=== PATIENT | male | born 1965 | race Caucasian/White ===

== ENCOUNTER 2021-07-01 17:47 | Emergency (ER) | payer OTHER, SELFPAY ==
[2021-07-01 17:57] VITALS: BP 104/70; PULSE 104; RESP 20; TEMP 37.1; O2SAT 100; BMI 29.0
[2021-07-01] MEDS: HYDROmorphone HCl 1 MG/ML SYRINGE IVPUSH ×2 (18:36→20:34)
[2021-07-01 18:37] VITALS: BP 128/88; PULSE 94; RESP 20
[2021-07-01 18:41] VITALS: BP 110/81; PULSE 89; RESP 16; O2SAT 99
--- NOTE | 2021-07-01 18:41 | ED.GENADULT ---
HPI - General Adult General Chief complaint: General Medical Stated complaint: drain tube leakage Time Seen by Provider: 07/01/21 18:17 Source: patient and family Mode of arrival: wheelchair Limitations: no limitations History of Present Illness HPI narrative: 56 yo male with known liver cancer followed by Dr Larson at [facility] (monthly chemo) here seeking paracentesis. Patient tells me he has a pleur X tube and does daily drainages (1L-2200ml). Last drainage was yesterday. Today they realized they did not have the supplies needed to do the paracentesis so the son brought the patient here. He has a visiting nurse that is coming at 9am tomorrow with additional supplies. Patient reports pain when my abdomen is full of fluids and states this is normal for me. No vomiting, diarrhea, fevers/chills, urinary symptoms. Patient has some bruising around his periorbital area that he tells me is from a fall on June 21 and he was seen in the emergency room on that day. Related Data Allergies Allergy/AdvReac Type Severity Reaction Status Date / Time No Known Allergies [NKA] Allergy Unverified 12/23/19 17:34 Review of Systems Review of Systems: Yes all other systems are reviewed and are negative Constitutional: Constitutional: Reports no additional constitutional complaints, Denies body ache(s), Denies chills, Denies fever(s), Denies headache(s) and Denies weakness Eyes: Eyes: Reports no additional eye complaints and Denies change in vision ENT: Reports system reviewed and no additional complaints, except as documented, Denies dizziness, Denies headache(s), Denies nasal congestion, Denies nasal discharge and Denies neck pain Cardiovascular: Cardiovascular: Reports no additional cardiovascular complaints, Denies chest pain, Denies leg edema and Denies dyspnea Respiratory: Respiratory: Reports no additional respiratory complaints, Denies cough and Denies dyspnea Gastrointestinal: Gastrointestinal: Reports no additional gastrointestinal complaints, Denies abdominal pain, Denies diarrhea, Denies nausea, Denies vomiting and Reports other (+abdominal distention ) Genitourinary: Genitourinary: Denies urinary incontinence Musculoskeletal: Musculoskeletal: Reports no additional musculoskeletal complaints, Denies back pain, Denies arthralgias, Denies joint swelling, Denies neck pain, Denies numbness and Denies tingling Integumentary/Breasts: Skin/Breast: Reports system reviewed and no additional complaints, except as docu and Denies rash Neurologic: Reports system reviewed and no additional complaints, except as documented, Denies dizziness, Denies headache(s), Denies numbness, Denies tingling and Denies weakness PMFSH Past Medical History Attestation statement: The following information was validated with the patient. Source: old records reviewed and nursing notes reviewed Medical History Liver cancer Social History Social History Advance Directives: No Advance Directives Information Provided: No Physical Exam ED Vital Signs: Vital Signs - 24 hr 07/01/21 17:57 07/01/21 18:37 07/01/21 18:41 Temperature 98.8 F Pulse Rate 104 H 94 89 Respiratory Rate 20 20 16 Blood Pressure 104/70 128/88 110/81 Pulse Oximetry 100 99 07/01/21 20:33 Temperature Pulse Rate 91 Respiratory Rate 16 Blood Pressure 121/81 Pulse Oximetry 98 BMI result Body Mass Index 29.0 Const General: alert Nutritional Appearance: thin Limitations: no limitations HENMT Other: Periorbital bruising bilaterally Ears: hearing grossly normal bilaterally Face and sinus: Yes normal facial exam Neck Neck: Yes normal visual inspection Chest Chest palpation & inspection: normal inspection of the chest Resp Effort & Inspection: normal respiratory effort Auscultation: clear to auscultation bilaterally Cardio Rate: regular rate Rhythm: regular rhythm Peripheral pulses: Peripheral pulses 2+ throughout GI Other: Pleur x RUQ Palpation (GI): Firmness to palpation present (GI) Back/Spine/Pelvis Thoracic/Lumbar Spine: thoracic and lumbar spine normal to inspection Skin General skin exam: no rashes or lesions noted Neuro General: moves all extremities Cognition (Neuro): normal cognition Extrem General: Yes normal to inspection, Yes no pedal edema and Yes no calf tenderness Course Course Course Narrative: 56 yo male here seeking paracentesis from [facility] as he ran out of supplies to do it at home today. Nurse coming tomorrow with supplies. Able to remove 3L. BP stable. Patient given dilaudid for pain which he takes at home for chronic pain. Low concern for SBP 1999-Patient feels improved. Plan for discharge home with plan for follow-up with his GI team, oncologist at [facility]. Reviewed worrisome signs and symptoms of when to return to the emergency department. Comfortable discharge home. Medical Decision Making Medical Records Medical records reviewed: Yes I reviewed the patient's medical records. Lab Data Lab results reviewed: Yes I reviewed the patient's lab results. Discharge Plan Discharge Clinical Impression: Ascites Patient Disposition: Home, Self-Care Instructions: Ascites (ED), Paracentesis (DC) Additional Instructions: We removed 3000ml Follow-up with your providers at [facility]
[2021-07-01 20:33] VITALS: BP 121/81; PULSE 91; RESP 16; O2SAT 98
== END 2021-07-01 20:50 | disposition home or self-care (01) ==
PROVIDERS: Emergency Provider Internal Medicine
DX: R18.8 Other ascites (principal); Z79.899 Other long term (current) drug therapy
CPT/HCPCS: 96374; 96375; 99283; 99284; J1170